=== PATIENT | female | born 1995 | race Asian ===

== ENCOUNTER 2016-10-15 10:56 | Emergency (ER) | payer OTHER ==
[~2016-10-15] VITALS: Ht 157.5 cm; Wt 47.7 kg
[2016-10-15 10:57] VITALS: BP 122/73
[2016-10-15] MEDS ORDERED: predniSONE 20 MG TAB PO ONE (11:30)
[2016-10-15] MEDS ORDERED: FAMOTIDINE 20 MG TAB PO ONE (11:30)
[2016-10-15] MEDS ORDERED: FAMO20TA PO (11:35)
[2016-10-15] MEDS ORDERED: PRED20TA PO (11:35)
== END 2016-10-15 11:41 | disposition home or self-care (01) ==
LOC: M ED 10:56
DX: S10.96XA Insect bite of unspecified part of neck, initial encounter (principal); W57.XXXA Bitten or stung by nonvenomous insect and other nonvenomous arthropods, initial encounter; Y92.9 Unspecified place or not applicable; Y93.9 Activity, unspecified; Y99.8 Other external cause status